=== PATIENT | male | born 1995 | race Caucasian/White ===

== ENCOUNTER 2019-05-15 12:31 | Outpatient (CLI) | payer OTHER ==
--- NOTE | 2019-05-15 15:42 | MRI ---
MRI LEFT RING DIGIT 05/15/19 PROVIDED CLINICAL HISTORY: Pain status post injury. FINDINGS: On the sagittal images, there is a focally irregular and slightly attenuated appearance to the flexor digitorum superficialis tendon just distal tot eh PIP joint (image 10 series 8). This is not well se en on the axial sequences due to slice selection. The extensor tendons and flexor digitorum profundus tendon appear intact. There is no evidence for debbie injury. There is conspicuous flexor tenosynovial fluid. The MCP, PIP and DIP joints appear normal. There is no evidence for interosseous tendon disruption. R egional marrow and muscular signal appear normal. No regional joint effusion is evident. IMPRESSION: 1. Low grade partial tearing of the flexor digitorum superficialis tendon as described. Associat ed conspicuous tenosynovial fluid. 2. No evidence for interosseous tendon disruption. POS: [facility]
== END 2019-05-15 12:32 | disposition home or self-care (01) ==
LOC: TBSIIMAG 12:31
PROVIDERS: ATTEND Orthopaedic Surgery
DX: M79.642 Pain in left hand (principal); S66.115A Strain of flexor muscle, fascia and tendon of left ring finger at wrist and hand level, initial encounter